=== PATIENT | male | born 1980 | race Caucasian/White ===

== ENCOUNTER 2017-09-10 12:50 | Emergency (ER) | payer OTHER ==
[~2017-09-10] VITALS: Ht 165.1 cm; Wt 88.2 kg
[2017-09-10] MEDS ORDERED: ADDERALL30 MG PO ×3 (13:35→13:42)
[2017-09-10 14:08] VITALS: BP 137/89
== END 2017-09-10 14:09 | disposition home or self-care (01) ==
LOC: EME 12:50
DX: Z76.0 Encounter for issue of repeat prescription (principal); F90.9 Attention-deficit hyperactivity disorder, unspecified type
CPT/HCPCS: 99281; 99283

== ENCOUNTER 2017-09-28 21:23 | Emergency (ER) | payer OTHER ==
[~2017-09-28] VITALS: Ht 165.1 cm; Wt 85.9 kg
[~2017-09-28 21:23] MED LIST: ADDERALL30 MG PO
[2017-09-29] MEDS ORDERED: ALPRAZOLAM0.5 MG PO (00:30)
[2017-09-29 00:38] VITALS: BP 158/105
== END 2017-09-29 00:43 | disposition home or self-care (01) ==
LOC: EME 21:23
DX: Z76.0 Encounter for issue of repeat prescription (principal); F41.9 Anxiety disorder, unspecified
CPT/HCPCS: 99281; 99284; Q0177

== ENCOUNTER → 2017-11-26 12:30 | Emergency (ER) | payer OTHER ==
[~2017-11-26] VITALS: Ht 165.1 cm; Wt 87.3 kg
[~2017-11-26 12:30] MED LIST changes: +ALPRAZOLAM0.5 MG PO
[2017-11-26 12:38] VITALS: BP 00/00
== END | disposition left against medical advice (07) ==
LOC: EME 12:30
DX: R07.9 Chest pain, unspecified (principal); F41.9 Anxiety disorder, unspecified; Z53.21 Procedure and treatment not carried out due to patient leaving prior to being seen by health care provider

== ENCOUNTER 2018-01-30 14:12 | Emergency (ER) | payer OTHER ==
[~2018-01-30] VITALS: Ht 162.6 cm; Wt 86.0 kg
[2018-01-30 14:27] VITALS: BP 162/113
== END 2018-01-30 15:15 | disposition left against medical advice (07) ==
LOC: EME 14:12
DX: Z76.0 Encounter for issue of repeat prescription (principal); F41.9 Anxiety disorder, unspecified; R07.9 Chest pain, unspecified; R06.02 Shortness of breath; Z53.20 Procedure and treatment not carried out because of patient's decision for unspecified reasons
CPT/HCPCS: 80053; 84484; 85027; 99281; 99283